=== PATIENT | male | born 2000 | race Caucasian/White ===

== ENCOUNTER 2018-03-18 12:23 | Emergency (ER) | payer OTHER ==
[~2018-03-18] VITALS: Ht 172.7 cm; Wt 122.5 kg
[~2018-03-18 12:23] MED LIST: AMPH20TA2 PO; GUAN1TAB14 PO
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
--- OUTSIDE RECORDS SUMMARY | 2018-03-18 13:52 | XMS REPORT | Continuity of Care Document ---
Author Author [facility] Address Unknown Phone Unavailable Allergies There is no data. Medications There is no data. Problems Date Dx Coded Attending Type Code Diagnosis Diagnosed By 08/06/2008 314.01 ADHD, COMBINED TYPE 08/06/2008 [employer], DEREJE A 314.01 ADHD, COMBINED TYPE 08/06/2008 [employer] TE[employer]ER, DEREJE A 314.01 ADHD, COMBINED TYPE 08/06/2008 [employer]ER, DEREJE A 314.01 ADHD, COMBINED TYPE 08/06/2008 NESTOR PHD, KRISTI Akers 314.01 ADHD, COMBINED TYPE 08/06/2008 [employer]ER, DEREJE A 314.01 ADHD, COMBINED TYPE 08/06/2008 [employer]ER, DEREJE A 314.01 ADHD, COMBINED TYPE 03/26/2010 313.81 CD OPPOSITIONAL DEFIANT 03/26/2010 [employer], DEREJE A 313.81 CD OPPOSITIONAL DEFIANT 03/26/2010 [employer]ER, DEREJE A 313.81 CD OPPOSITIONAL DEFIANT 03/26/2010 [employer] TE[employer]ER, DEREJE A 313.81 CD OPPOSITIONAL DEFIANT 03/26/2010 NESTOR ARRIOLA, KRISTI Akers 313.81 CD OPPOSITIONAL DEFIANT 03/26/2010 [employer]ER, DEREJE A 313.81 CD OPPOSITIONAL DEFIANT 03/26/2010 [employer] TE[employer]ER, DEREJE A 313.81 CD OPPOSITIONAL DEFIANT 05/15/2010 309.81 AN PTSD 05/15/2010 [employer], DEREJE A 309.81 AN PTSD 05/15/2010 [employer]ER, DEREJE A 309.81 AN PTSD 05/15/2010 [employer]ER, DEREJE A 309.81 AN PTSD 05/15/2010 NESTOR ARRIOLA, KRISTI Akers 309.81 AN PTSD 05/15/2010 [employer]ER, DEREJE A 309.81 AN PTSD 05/15/2010 [employer]ER, DEREJE A 309.81 AN PTSD 07/10/2010 V58.69 MEDICATION HIGH RISK 07/10/2010 [employer]ER, DEREJE A V58.69 MEDICATION HIGH RISK 07/10/2010 [employer] TE[employer]ER, DEREJE A V58.69 MEDICATION HIGH RISK 07/10/2010 [employer] TE[employer]ER, DEREJE A V58.69 MEDICATION HIGH RISK 07/10/2010 NESTOR ARRIOLA, KRISTI Akers V58.69 MEDICATION HIGH RISK 07/10/2010 [employer]ER, DEREJE A V58.69 MEDICATION HIGH RISK 07/10/2010 [employer]ER, DEREJE A V58.69 MEDICATION HIGH RISK 03/07/2013 [employer] TE[employer]ER, DEREJE A V70.3 SPORTS PHYSICAL 03/07/2013 [employer]ER, DEREJE A V70.3 SPORTS PHYSICAL 03/07/2013 [employer]ER, DEREJE A V70.3 SPORTS PHYSICAL 03/07/2013 KRISTI BAEZ PHD V70.3 SPORTS PHYSICAL 03/07/2013 [employer]ER, DEREJE A V70.3 SPORTS PHYSICAL 03/07/2013 [employer]ER, DEREJE A V70.3 SPORTS PHYSICAL 03/21/2013 [employer] TE[employer]ER, DEREJE A 780.79 fatigue 03/21/2013 [employer]ER, DEREJE A 780.79 fatigue 03/21/2013 NESTOR ARRIOLA, KRISTI Akers 780.79 fatigue 03/21/2013 [employer]ER, DEREJE A 780.79 fatigue 03/21/2013 [employer]ER, DEREJE A 780.79 fatigue 12/04/2013 KRISTI BAEZ PHD 296.90 MOOD DISORDER NOS 12/04/2013 NESTOR ARRIOLA, KRISTI Akers 314.9 UNSPECIFIED HYPERKINETIC SYNDROME OF CHILDHOOD 12/04/2013 [employer], DEREJE A 296.90 MOOD DISORDER NOS 12/04/2013 [employer]ER, DEREJE A 314.9 UNSPECIFIED HYPERKINETIC SYNDROME OF CHILDHOOD 12/04/2013 [employer]ER, DEREJE A 296.90 MOOD DISORDER NOS 12/04/2013 [employer] TE[employer]ER, DEREJE A 314.9 UNSPECIFIED HYPERKINETIC SYNDROME OF CHILDHOOD 04/01/2014 [employer]ER, DEREJE A 110.0 TINEA CAPITIS 04/01/2014 DEREJE DENSON APRN 110.5 TINEA CORPORIS Procedures Code Description [place] [address] VISUAL ACUITY SCREEN 03/08/2013 20162 MONO TEST (IN-HOUSE) 03/21/2013 56053 PSYCH DIAGNOSTIC EVALUATION 12/04/2013 75584 VISUAL ACUITY SCREEN 03/05/2014 Results There is no data. Encounters ACCT No. Visit Date/Time Discharge Status Pt. Type Provider Facility Loc./Unit Complaint [id number] 04/01/2014 15:32:00 04/01/2014 23:59:59 CLS Outpatient DEREJE DENSON APRN [id number] 03/05/2014 10:08:00 03/05/2014 23:59:59 CLS Outpatient DEREJE DENSON APRN [id number] 12/04/2013 09:59:00 12/04/2013 23:59:59 CLS Outpatient NESTOR ARRIOLA, KRISTI Akers [id number] 03/21/2013 14:57:00 03/21/2013 23:59:59 CLS Outpatient DEREJE DENSON APRN [id number] 03/21/2013 14:57:00 03/21/2013 23:59:59 CLS Outpatient DEREJE DENSON APRN [id number] 03/07/2013 13:32:00 03/07/2013 23:59:59 CLS Outpatient DEREJE DENSON APRN [id number] 10/14/2010 09:45:00 10/14/2010 23:59:59 CLS Outpatient [id number] 01/08/2014 13:00:00 01/08/2014 23:59:59 CLS Outpatient
== END 2018-03-18 12:59 | disposition home or self-care (01) ==
LOC: EDUNIT# 12:23 → ER 12:24
DX: S01.01XD Laceration without foreign body of scalp, subsequent encounter (principal); V89.9XXD Person injured in unspecified vehicle accident, subsequent encounter
CPT/HCPCS: 99282